=== PATIENT | male | born 1935 ===

== ENCOUNTER 2019-08-04 15:29 | Inpatient (IN) ==
[2019-08-04] MEDS ORDERED: cefTRIAXone 1,000 MG in Water for inj. (sterile) 10 ML IVP ONE (16:13)
[2019-08-04 16:58] LABS: Hematocrit 45.5 % (37.5-50.1); Hemoglobin 14.5 g/dL (12.9-16.9); Mean Corpuscular HGB Conc 31.9 g/dL (31.6-35.5); Mean Corpuscular Hemoglobin 29.3 pg (28.0-33.3); Mean Corpuscular Volume 91.9 fL (83.0-100.0); Mean Platelet Volume 10.1 fL (9.4-12.4); Platelet Count 121 K/mcL (140-400); Red Blood Count 4.95 M/mcL (4.19-5.50); Red Cell Distribution Width 14.4 % (11.5-14.5); White Blood Count 25.4 K/mcL (4.3-11.1)
[2019-08-04 17:20] LABS: BUN/Creatinine Ratio 18 (6-26); Blood Urea Nitrogen 18 mg/dL (8-23); C-Reactive Protein 19 mg/L (Less than 10); Calcium 9.3 mg/dL (8.6-10.3); Carbon Dioxide 22 mEq/L (23-29); Chloride 104 mEq/L (98-107); Glucose 101 mg/dL (70-105); Osmolality,Calculated 284 (280-300); Potassium 4.2 mEq/L (3.5-5.1); Sodium 136 mEq/L (136-145); Uric Acid 7.8 mg/dL (2.3-7.6); eGFR For African Americans > 60 (> 60); eGFR For Non-African Americans > 60 (> 60)
[2019-08-04] MEDS ORDERED: Naloxone 0.4 MG/ML INJ IVP PRN (18:03)
[2019-08-04] MEDS ORDERED: *HR* Promethazine 25 MG/ML VIAL IVP PRN (18:03)
[2019-08-04] MEDS ORDERED: Ringers Solution, Lactated 1,000 ML IVC SCH (18:15)
[2019-08-04] MEDS ORDERED: Ibuprofen 600 MG TABLET PO PRN (18:30)
[2019-08-04] MEDS ORDERED: *HR* Labetalol 20 MG/4 ML SYRINGE IVP PRN (18:35)
[2019-08-05] MEDS: *HR* HYDROcodone/Acet 5/325 mg TABLET PO PRN ×3 (01:08→14:34)
[2019-08-05 05:05] LABS: Eosinophils % 0.4 %; Hemoglobin 14.8 g/dL (12.9-16.9); Mean Corpuscular Volume 92.3 fL (83.0-100.0)
[2019-08-05 05:06] LABS: INR 1.1; Prothrombin Time 12.1 Seconds (9.4-12.1)
[2019-08-05 05:07] LABS: Basophils # 0.1 K/mcL (0.0-0.2); Basophils % 0.3 %; Eosinophils # 0.1 K/mcL (0.0-0.6); Hematocrit 45.5 % (37.5-50.1); Immature Granulocytes % 2.3 % (0-4); Lymphocytes # 20.6 K/mcL (0.6-4.6); Lymphocytes % 71.5 %; Mean Corpuscular HGB Conc 32.5 g/dL (31.6-35.5); Mean Platelet Volume 9.6 fL (9.4-12.4); Monocytes # 1.6 K/mcL (0.0-1.3); Monocytes % 5.6 %; Platelet Count 115 K/mcL (140-400); Red Blood Count 4.93 M/mcL (4.19-5.50); Red Cell Distribution Width 14.6 % (11.5-14.5); Segmented Neutrophils % 19.9 %; White Blood Count 28.8 K/mcL (4.3-11.1)
[2019-08-05 05:08] LABS: Activated Partial Thrombo Time 31.3 Seconds (26.0-36.0)
[2019-08-05 05:10] LABS: Neutrophils # 5.7 K/mcL (1.6-8.9)
[2019-08-05 05:22] LABS: Alanine Aminotransferase 12 Units/L (7-52); Albumin 4.4 g/dL (3.5-5.7); Albumin/Globulin Ratio 2.3 (1.1-2.2); Alkaline Phosphatase 74 Units/L (34-104); Aspartate Amino Transferase 16 Units/L (13-39); BUN/Creatinine Ratio 17 (6-26); Bilirubin,Total 0.7 mg/dL (0.3-1.0); Blood Urea Nitrogen 18 mg/dL (8-23); Calcium 9.2 mg/dL (8.6-10.3); Carbon Dioxide 25 mEq/L (23-29); Chloride 105 mEq/L (98-107); Globulin 1.9 g/dL (2.4-3.5); Glucose 106 mg/dL (70-105); Magnesium 1.8 mg/dL (1.6-2.6); Osmolality,Calculated 286 (280-300); Phosphorous 3.6 mg/dL (2.7-4.5); Potassium 4.1 mEq/L (3.5-5.1); Sodium 137 mEq/L (136-145); Total Protein 6.3 g/dL (6.4-8.9); eGFR For African Americans > 60 (> 60); eGFR For Non-African Americans > 60 (> 60)
[2019-08-05 05:32] LABS: Platelet Estimate Slight Decrease (Normal); Reactive Lymphocytes Present (Not Present)
[2019-08-05] MEDS: allopurinoL 100 MG TABLET PO SCH (08:11)
[2019-08-05] MEDS: levoFLOXacin 750 MG/150 ML 750 MG/150 ML BAG IVPB SCH (08:15)
[2019-08-05] MEDS: carvediloL 25 MG TABLET PO SCH ×2 (09:50→21:02)
[2019-08-06 05:20] LABS: Eosinophils % 0.6 %; Immature Granulocytes % 2.4 % (0-4); Segmented Neutrophils % 22.6 %
[2019-08-06 05:22] LABS: Basophils % 0.2 %; Eosinophils # 0.1 K/mcL (0.0-0.6); Hematocrit 42.2 % (37.5-50.1); Hemoglobin 13.6 g/dL (12.9-16.9); Immature Platelets 3.9 % (1.1-6.1); Lymphocytes % 68.2 %; Mean Corpuscular HGB Conc 32.2 g/dL (31.6-35.5); Mean Corpuscular Hemoglobin 29.4 pg (28.0-33.3); Mean Corpuscular Volume 91.1 fL (83.0-100.0); Mean Platelet Volume 9.9 fL (9.4-12.4); Monocytes # 1.1 K/mcL (0.0-1.3); Neutrophils # 4.1 K/mcL (1.6-8.9); Nucleated Red Blood Cells 0.1 /100 WBC (0); Platelet Count 105 K/mcL (140-400); Red Blood Count 4.63 M/mcL (4.19-5.50); Red Cell Distribution Width 14.6 % (11.5-14.5); White Blood Count 18.1 K/mcL (4.3-11.1)
[2019-08-06 05:23] LABS: Lymphocytes # 12.3 K/mcL (0.6-4.6)
[2019-08-06 05:34] LABS: Platelet Estimate Decreased (Normal); Reactive Lymphocytes Present (Not Present)
[2019-08-06] MEDS: levoFLOXacin 750 MG/150 ML 750 MG/150 ML BAG IVPB SCH (08:12)
[2019-08-06] MEDS: carvediloL 25 MG TABLET PO SCH ×2 (08:13→17:59)
[2019-08-06] MEDS: allopurinoL 100 MG TABLET PO SCH (08:14)
[2019-08-06 11:25] LABS: BUN/Creatinine Ratio 16 (6-26); Blood Urea Nitrogen 18 mg/dL (8-23); Calcium 8.9 mg/dL (8.6-10.3); Carbon Dioxide 25 mEq/L (23-29); Chloride 103 mEq/L (98-107); Glucose 127 mg/dL (70-105); Osmolality,Calculated 283 (280-300); Potassium 3.9 mEq/L (3.5-5.1); Sodium 135 mEq/L (136-145); eGFR For African Americans > 60 (> 60); eGFR For Non-African Americans > 60 (> 60)
[2019-08-06 12:15] LABS: Uric Acid 7.1 mg/dL (2.3-7.6)
[2019-08-06] MEDS: Sennosides/Docusate Sodium TABLET PO SCH ×2 (12:16→20:24)
[2019-08-07 03:11] LABS: Basophils # 0.1 K/mcL (0.0-0.2); Basophils % 0.4 %; Eosinophils # 0.2 K/mcL (0.0-0.6); Hematocrit 41.5 % (37.5-50.1); Hemoglobin 13.4 g/dL (12.9-16.9); Immature Granulocytes % 1.8 % (0-4); Lymphocytes # 14.2 K/mcL (0.6-4.6); Lymphocytes % 72.8 %; Mean Corpuscular HGB Conc 32.3 g/dL (31.6-35.5); Mean Corpuscular Hemoglobin 29.5 pg (28.0-33.3); Mean Corpuscular Volume 91.4 fL (83.0-100.0); Mean Platelet Volume 9.9 fL (9.4-12.4); Monocytes % 4.9 %; Platelet Count 111 K/mcL (140-400); Red Blood Count 4.54 M/mcL (4.19-5.50); Red Cell Distribution Width 14.4 % (11.5-14.5); Segmented Neutrophils % 19.1 %; White Blood Count 19.5 K/mcL (4.3-11.1)
[2019-08-07 03:13] LABS: Neutrophils # 3.7 K/mcL (1.6-8.9)
[2019-08-07 03:30] LABS: BUN/Creatinine Ratio 19 (6-26); Blood Urea Nitrogen 21 mg/dL (8-23); Calcium 8.8 mg/dL (8.6-10.3); Carbon Dioxide 24 mEq/L (23-29); Chloride 106 mEq/L (98-107); Glucose 108 mg/dL (70-105); Osmolality,Calculated 288 (280-300); Potassium 3.9 mEq/L (3.5-5.1); Sodium 137 mEq/L (136-145); eGFR For African Americans > 60 (> 60); eGFR For Non-African Americans > 60 (> 60)
[2019-08-07 03:44] LABS: Platelet Estimate Normal (Normal); Reactive Lymphocytes Present (Not Present)
[2019-08-07] MEDS: carvediloL 25 MG TABLET PO SCH ×2 (09:50→17:45)
[2019-08-07] MEDS: Sennosides/Docusate Sodium TABLET PO SCH ×3 (09:50→20:45)
[2019-08-07] MEDS: levoFLOXacin 750 MG/150 ML 750 MG/150 ML BAG IVPB SCH (09:50)
[2019-08-07] MEDS: Fluticasone Propionate Nasal 50 MCG/SPRAY BOTTLE NS SCH (14:14)
[2019-08-07] MEDS: *HR* HYDROcodone/Acet 5/325 mg TABLET PO PRN (20:52)
[2019-08-08] MEDS: Fluticasone Propionate Nasal 50 MCG/SPRAY BOTTLE NS SCH (09:40)
[2019-08-08] MEDS: levoFLOXacin 750 MG/150 ML 750 MG/150 ML BAG IVPB SCH (09:41)
[2019-08-08] MEDS: Sennosides/Docusate Sodium TABLET PO SCH ×2 (09:41→21:03)
[2019-08-08] MEDS: carvediloL 25 MG TABLET PO SCH ×2 (09:41→17:38)
[2019-08-08] MEDS: allopurinoL 100 MG TABLET PO SCH (19:40)
[2019-08-09] MEDS: *HR* HYDROcodone/Acet 5/325 mg TABLET PO PRN (01:13)
[2019-08-09 07:51] LABS: Red Cell Distribution Width 14.3 % (11.5-14.5)
[2019-08-09 07:52] LABS: Hematocrit 46.9 % (37.5-50.1); Hemoglobin 15.1 g/dL (12.9-16.9); Mean Corpuscular HGB Conc 32.2 g/dL (31.6-35.5); Mean Corpuscular Hemoglobin 29.5 pg (28.0-33.3); Mean Corpuscular Volume 91.8 fL (83.0-100.0); Platelet Count 131 K/mcL (140-400); Red Blood Count 5.11 M/mcL (4.19-5.50)
[2019-08-09 08:07] LABS: BUN/Creatinine Ratio 19 (6-26); Blood Urea Nitrogen 21 mg/dL (8-23); Calcium 9.2 mg/dL (8.6-10.3); Carbon Dioxide 25 mEq/L (23-29); Chloride 107 mEq/L (98-107); Glucose 95 mg/dL (70-105); Osmolality,Calculated 291 (280-300); Potassium 4.1 mEq/L (3.5-5.1); Sodium 139 mEq/L (136-145); eGFR For African Americans > 60 (> 60); eGFR For Non-African Americans > 60 (> 60)
[2019-08-09] MEDS: levoFLOXacin 750 MG/150 ML 750 MG/150 ML BAG IVPB SCH (08:34)
[2019-08-09] MEDS: Sennosides/Docusate Sodium TABLET PO SCH ×2 (08:36→08:55)
[2019-08-09] MEDS: carvediloL 25 MG TABLET PO SCH (08:36)
[2019-08-09] MEDS: Fluticasone Propionate Nasal 50 MCG/SPRAY BOTTLE NS SCH (08:36)
[2019-08-09 09:25] LABS: Lymphocytes # 22.9 K/mcL (0.6-4.6); Monocytes # 0.5 K/mcL (0.0-1.3); Neutrophils # 2.6 K/mcL (1.6-8.9); Platelet Estimate Slight Decrease (Normal); Reactive Lymphocytes Present (Not Present)
[2019-08-09 12:31] VITALS: BP 144/69
[2019-08-09] MEDS ORDERED: Aminoglycoside Consult 1 EACH MC ONE (15:14)
== END 2019-08-09 15:15 | disposition home or self-care (01) | DRG 603 ==
LOC: 3ANU 15:29 → EMEROOARM 15:29 → 3ANU 19:38 → SUATTDRO 08-05 14:42
PROVIDERS: ADMIT Internal Medicine; ATTEND Internal Medicine

== ENCOUNTER 2020-10-17 01:13 | Inpatient (IN) ==
[2020-10-17 02:38] LABS: Basophils % 0.4 %; Eosinophils # 0.1 K/mcL (0.0-0.6); Eosinophils % 0.8 %; Hematocrit 40.8 % (37.5-50.1); Hemoglobin 13.7 g/dL (12.9-16.9); Immature Granulocytes % 1.6 % (0-4); Immature Platelets 4.2 % (1.1-6.1); Lymphocytes # 1.5 K/mcL (0.6-4.6); Lymphocytes % 16.2 %; Mean Corpuscular HGB Conc 33.6 g/dL (31.6-35.5); Mean Corpuscular Hemoglobin 33.3 pg (28.0-33.3); Mean Platelet Volume 9.4 fL (9.4-12.4); Monocytes # 0.7 K/mcL (0.0-1.3); Neutrophils # 6.7 K/mcL (1.6-8.9); Red Blood Count 4.12 M/mcL (4.19-5.50); Red Cell Distribution Width 13.2 % (11.5-14.5); White Blood Count 9.2 K/mcL (4.3-11.1)
[2020-10-17 02:39] LABS: Platelet Count 96 K/mcL (140-400)
[2020-10-17] MEDS ORDERED: Isovue-370 500 ML BOTTLE IVP ONE (02:55)
[2020-10-17 02:58] LABS: BUN/Creatinine Ratio 20 (6-26); Blood Urea Nitrogen 23 mg/dL (8-23); Calcium 8.7 mg/dL (8.6-10.3); Carbon Dioxide 26 mEq/L (23-29); Chloride 104 mEq/L (98-107); Glucose 142 mg/dL (70-105); Osmolality,Calculated 298 (280-300); Potassium 4.4 mEq/L (3.5-5.1); Sodium 141 mEq/L (136-145); Troponin I < 0.03 ng/mL (< 0.04); eGFR For African Americans > 60 (> 60); eGFR For Non-African Americans 59 (> 60)
[2020-10-17] MEDS ORDERED: Ondansetron 4 MG/2 ML VIAL IVP ONE ×2 (03:13→08:08)
[2020-10-17] MEDS ORDERED: *HR* Dextrose 50 % in Water (Vial) 50 ML VIAL IVP PRN (08:53)
[2020-10-17] MEDS ORDERED: D5% in Water 1,000 ML IVC PRN (08:53)
[2020-10-17] MEDS ORDERED: Dextrose Gel 15 GM/37.5 ML TUBE PO PRN ×2 (08:53)
[2020-10-17] MEDS ORDERED: Ringers Solution, Lactated 1,000 ML IVC SCH (09:00)
[2020-10-17] MEDS: Pantoprazole 40 MG VIAL IVP SCH (09:29)
[2020-10-17] MEDS: Aspirin Enteric Coated 81 MG Tablet PO SCH (09:29)
[2020-10-17] MEDS: Insulin LISPRO 300 UNITS/3 ML VIAL SUBQ SCH ×2 (13:19→18:26)
[2020-10-17] MEDS ORDERED: *HR* Heparin 5,000 UNIT/ML VIAL SQ SCH (14:00)
[2020-10-17 18:38] LABS: Bilirubin,Urine Negative (Negative); Blood,Urine Small (Negative); Clarity,Urine Clear (Clear); Color,Urine Light-Yellow (Yellow); Glucose,Urine (UA) Normal (Normal); Ketones,Urine Negative (Negative); Leukocyte Esterase,Urine Negative (Negative); Mucus,Urine Few per lpf (None-Few); Nitrite,Urine Negative (Negative); PH,Urine 6.5 pH Units (5.0-8.0); Protein,Urine 30 mg/dL (Neg-Trace); Specific Gravity,Urine > 1.030 (1.010-1.025); Urobilinogen,Urine Normal (Normal); WBC,Urine 0-3 per hpf (0-3)
[2020-10-17] MEDS: Metoclopramide 10 MG/2 ML VIAL IVP PRN (21:40)
[2020-10-18] MEDS: Insulin LISPRO 300 UNITS/3 ML VIAL SUBQ SCH ×3 (02:10→12:08)
[2020-10-18] MEDS: Metoclopramide 10 MG/2 ML VIAL IVP PRN (03:43)
[2020-10-18 05:12] LABS: INR 1.1; Prothrombin Time 12.6 Seconds (9.4-12.1)
[2020-10-18 05:20] LABS: Estimated Average Glucose 105 mg/dl; Hemoglobin A1C 5.3 %
[2020-10-18 05:27] LABS: Alanine Aminotransferase 11 Units/L (7-52); Albumin/Globulin Ratio 1.9 (1.1-2.2); Alkaline Phosphatase 68 Units/L (34-104); Aspartate Amino Transferase 16 Units/L (13-39); BUN/Creatinine Ratio 24 (6-26); Bilirubin,Total 0.6 mg/dL (0.3-1.0); Blood Urea Nitrogen 24 mg/dL (8-23); Calcium 8.8 mg/dL (8.6-10.3); Carbon Dioxide 27 mEq/L (23-29); Chloride 103 mEq/L (98-107); Cholesterol 162 mg/dL (< 200); Globulin 2.1 g/dL (2.4-3.5); Glucose 152 mg/dL (70-105); HDL Cholesterol 27 mg/dL (40-59); LDL Cholesterol,Calculated 83 mg/dL (< 100); Osmolality,Calculated 303 (280-300); Potassium 4.2 mEq/L (3.5-5.1); Sodium 143 mEq/L (136-145); Total Protein 6.1 g/dL (6.4-8.9); Triglycerides 261 mg/dL (< 150); eGFR For African Americans > 60 (> 60); eGFR For Non-African Americans > 60 (> 60)
[2020-10-18] MEDS: Aspirin Enteric Coated 81 MG Tablet PO SCH ×2 (08:06→08:09)
[2020-10-18] MEDS: Pantoprazole 40 MG VIAL IVP SCH (08:06)
[2020-10-18] MEDS ORDERED: cefTRIAXone 1,000 MG in Water for inj. (sterile) 10 ML IVP SCH (13:00)
[2020-10-18] MEDS: Azithromycin 500 MG in 0.9 % Sodium Chloride 250 ML IVPB SCH (13:02)
[2020-10-18] MEDS: predniSONE 20 MG TABLET PO SCH (13:03)
[2020-10-18] MEDS: carvediloL 25 MG TABLET PO SCH (16:12)
[2020-10-18] MEDS: MetroNIDAZOLE 500 MG/100 ML 500 MG/100 ML BAG IVPB SCH (16:13)
[2020-10-18] MEDS ORDERED: ACALABRUTINIB 100 MG PO SCH (21:00)
[2020-10-19 03:05] LABS: Basophils % 0.1 %
[2020-10-19 03:07] LABS: Hematocrit 42.8 % (37.5-50.1); Hemoglobin 14.2 g/dL (12.9-16.9); Immature Granulocytes % 1.7 % (0-4); Immature Platelets 4.6 % (1.1-6.1); Lymphocytes # 0.6 K/mcL (0.6-4.6); Mean Corpuscular HGB Conc 33.2 g/dL (31.6-35.5); Mean Corpuscular Hemoglobin 32.9 pg (28.0-33.3); Mean Corpuscular Volume 99.3 fL (83.0-100.0); Mean Platelet Volume 10.2 fL (9.4-12.4); Monocytes # 0.3 K/mcL (0.0-1.3); Monocytes % 3.6 %; Red Blood Count 4.31 M/mcL (4.19-5.50); Red Cell Distribution Width 12.9 % (11.5-14.5); Segmented Neutrophils % 85.6 %
[2020-10-19 03:13] LABS: Platelet Count 90 K/mcL (140-400)
[2020-10-19 03:22] LABS: BUN/Creatinine Ratio 23 (6-26); Blood Urea Nitrogen 22 mg/dL (8-23); Carbon Dioxide 27 mEq/L (23-29); Chloride 106 mEq/L (98-107); Glucose 142 mg/dL (70-105); Osmolality,Calculated 292 (280-300); Sodium 138 mEq/L (136-145); eGFR For African Americans > 60 (> 60); eGFR For Non-African Americans > 60 (> 60)
[2020-10-19] MEDS: MetroNIDAZOLE 500 MG/100 ML 500 MG/100 ML BAG IVPB SCH ×4 (03:43→20:38)
[2020-10-19] MEDS: carvediloL 25 MG TABLET PO SCH ×2 (10:18→17:05)
[2020-10-19] MEDS: Finasteride 5 MG TABLET PO SCH (10:18)
[2020-10-19] MEDS: Cholecalciferol (D-3) 1,000 UNIT (25MCG) TABLET PO SCH (10:18)
[2020-10-19] MEDS: predniSONE 20 MG TABLET PO SCH (10:18)
[2020-10-19] MEDS: Pantoprazole 40 MG VIAL IVP SCH (10:19)
[2020-10-19] MEDS: Cyanocobalamin (B-12) 1,000 MCG TABLET PO SCH (10:19)
[2020-10-19] MEDS: allopurinoL 100 MG TABLET PO SCH (10:19)
[2020-10-19] MEDS: Azithromycin 500 MG in 0.9 % Sodium Chloride 250 ML IVPB SCH (12:58)
[2020-10-20 02:58] LABS: Basophils % 0.1 %
[2020-10-20 03:00] LABS: Hematocrit 41.4 % (37.5-50.1); Immature Granulocytes % 1.8 % (0-4); Immature Platelets 3.8 % (1.1-6.1); Lymphocytes # 1.1 K/mcL (0.6-4.6); Lymphocytes % 15.3 %; Mean Corpuscular HGB Conc 33.8 g/dL (31.6-35.5); Mean Corpuscular Hemoglobin 32.9 pg (28.0-33.3); Mean Corpuscular Volume 97.4 fL (83.0-100.0); Mean Platelet Volume 9.9 fL (9.4-12.4); Monocytes # 0.7 K/mcL (0.0-1.3); Monocytes % 10.3 %; Neutrophils # 5.2 K/mcL (1.6-8.9); Platelet Count 86 K/mcL (140-400); Red Blood Count 4.25 M/mcL (4.19-5.50); Red Cell Distribution Width 12.9 % (11.5-14.5); Segmented Neutrophils % 72.5 %; White Blood Count 7.2 K/mcL (4.3-11.1)
[2020-10-20 03:14] LABS: BUN/Creatinine Ratio 22 (6-26); Blood Urea Nitrogen 22 mg/dL (8-23); Carbon Dioxide 28 mEq/L (23-29); Chloride 104 mEq/L (98-107); Glucose 118 mg/dL (70-105); Osmolality,Calculated 298 (280-300); Potassium 3.7 mEq/L (3.5-5.1); Sodium 142 mEq/L (136-145); eGFR For African Americans > 60 (> 60); eGFR For Non-African Americans > 60 (> 60)
[2020-10-20] MEDS: MetroNIDAZOLE 500 MG/100 ML 500 MG/100 ML BAG IVPB SCH ×3 (04:33→12:35)
[2020-10-20] MEDS: Pantoprazole 40 MG VIAL IVP SCH (09:44)
[2020-10-20] MEDS: Finasteride 5 MG TABLET PO SCH (09:44)
[2020-10-20] MEDS: Cholecalciferol (D-3) 1,000 UNIT (25MCG) TABLET PO SCH (09:45)
[2020-10-20] MEDS: carvediloL 25 MG TABLET PO SCH ×2 (09:45→17:02)
[2020-10-20] MEDS: allopurinoL 100 MG TABLET PO SCH (09:45)
[2020-10-20] MEDS: predniSONE 20 MG TABLET PO SCH (09:45)
[2020-10-20] MEDS: Cyanocobalamin (B-12) 1,000 MCG TABLET PO SCH (09:45)
[2020-10-20] MEDS: Azithromycin 500 MG in 0.9 % Sodium Chloride 250 ML IVPB SCH (12:31)
[2020-10-20] MEDS ORDERED: Azithromycin 250 MG TABLET PO ONE (12:47)
[2020-10-20] MEDS: Metoclopramide 10 MG/2 ML VIAL IVP PRN (23:18)
[2020-10-21 04:21] LABS: Basophils % 0.1 %; Hematocrit 40.7 % (37.5-50.1); Hemoglobin 14.3 g/dL (12.9-16.9); Immature Granulocytes % 2.1 % (0-4); Lymphocytes # 1.1 K/mcL (0.6-4.6); Lymphocytes % 15.1 %; Mean Corpuscular HGB Conc 35.1 g/dL (31.6-35.5); Mean Corpuscular Hemoglobin 33.5 pg (28.0-33.3); Mean Corpuscular Volume 95.3 fL (83.0-100.0); Mean Platelet Volume 10.3 fL (9.4-12.4); Monocytes # 0.8 K/mcL (0.0-1.3); Monocytes % 11.6 %; Red Blood Count 4.27 M/mcL (4.19-5.50); Red Cell Distribution Width 12.6 % (11.5-14.5); Segmented Neutrophils % 71.1 %
[2020-10-21 04:40] LABS: Platelet Count 76 K/mcL (140-400)
[2020-10-21 04:49] LABS: BUN/Creatinine Ratio 28 (6-26); Blood Urea Nitrogen 27 mg/dL (8-23); Calcium 8.6 mg/dL (8.6-10.3); Carbon Dioxide 23 mEq/L (23-29); Chloride 104 mEq/L (98-107); Glucose 111 mg/dL (70-105); Osmolality,Calculated 300 (280-300); Potassium 3.6 mEq/L (3.5-5.1); Sodium 142 mEq/L (136-145); eGFR For African Americans > 60 (> 60); eGFR For Non-African Americans > 60 (> 60)
[2020-10-21] MEDS: predniSONE 20 MG TABLET PO SCH (08:47)
[2020-10-21] MEDS: Cholecalciferol (D-3) 1,000 UNIT (25MCG) TABLET PO SCH (08:47)
[2020-10-21] MEDS: carvediloL 25 MG TABLET PO SCH (08:47)
[2020-10-21] MEDS: allopurinoL 100 MG TABLET PO SCH (08:47)
[2020-10-21] MEDS: Finasteride 5 MG TABLET PO SCH (08:48)
[2020-10-21] MEDS: Cyanocobalamin (B-12) 1,000 MCG TABLET PO SCH (08:48)
[2020-10-21 13:20] VITALS: BP 149/72
[2020-10-21 13:43] LABS: Adenovirus Not Detected (Not Detect); Bordetella Pertussis Not Detected (Not Detect); Chlamydophila pneumoniae Not Detected (Not Detect); Coronavirus 229E Not Detected (Not Detect); Coronavirus HKU1 Not Detected (Not Detect); Coronavirus NL63 Not Detected (Not Detect); Coronavirus OC43 Not Detected (Not Detect); Human Metapneumovirus Not Detected (Not Detect); Human Rhinovirus/Enterovirus DETECTED (Not Detect); Influenza A Subtype 2009 H1 Not Detected (Not Detect); Influenza B Not Detected (Not Detect); Mycoplasma pneumoniae Not Detected (Not Detect); Parainfluenza Virus 1 Not Detected (Not Detect); Parainfluenza Virus 2 Not Detected (Not Detect); Parainfluenza Virus 3 Not Detected (Not Detect); Parainfluenza Virus 4 Not Detected (Not Detect); Respiratory Syncytial Virus Not Detected (Not Detect); SARS-CoV-2 Not Detected (Not Detect)
== END 2020-10-21 15:58 | DRG 149 ==
LOC: EMEROOARM 01:13 → 3ANU 01:13 → SUATTDRO 11:41 → 3ANU 11:42
PROVIDERS: ADMIT Internal Medicine; ATTEND Family Medicine